=== PATIENT | female | born 1970 | race Hispanic/Latino ===

== ENCOUNTER → 2017-07-21 | Outpatient (CLI) | payer MEDICARE ==
[~2017-07-21] MED LIST: ACET-2900 PO; ADV500 IH; BIOT5000 PO; CETI10TA57 PO; DIAZ5TAB4 PO; GABA-531 PO; HYDR-2534 PO; HYDR-4060 PO; IBUP-2077 PO; INSU100C14 SQ; INSU3INS3 SQ; LEVO88TA7 PO; LOSA50TA37 PO; MONT10TA24 PO; ONDA22I IM; ONDA4TAB4 PO; PANT40TA25 PO; PRAV40TA3 PO; SOLI5 PO; SPIR25TA PO; TRAZ150T79 PO; WARF-57 PO; WARF4TAB72 PO; [UNRECOGNIZED DRUG - OTHER] PO; [UNRECOGNIZED DRUG - OTHER] PO; [UNRECOGNIZED DRUG - OTHER] PO; albuterol PO; proventil IH; victoza; vitamin b12 PO
== END | disposition home or self-care (01) ==
LOC: SHCH 09:38
PROVIDERS: ATTEND Internal Medicine Cardiovascular Disease
DX: Z09 Encounter for follow-up examination after completed treatment for conditions other than malignant neoplasm (principal)
CPT/HCPCS: 93971

== ENCOUNTER 2017-09-26 10:39 | Day surgery (SDC) | payer MEDICARE ==
[~2017-09-26] VITALS: Ht 153.7 cm; Wt 148.1 kg
[~2017-09-26 10:39] MED LIST changes: -ONDA22I IM; +SODIUM CHLORIDE 0.9% 1000ML 1,000 ML IV ONE
[2017-09-26 11:39] VITALS: BP 139/92
[2017-09-26 11:55] LABS: INR 0.95 (0.85-1.15)
[2017-09-26] MEDS ORDERED: PROPOFOL 10 MG/ML 20ML VIAL IV ONE (11:57)
[2017-09-26 12:04] VITALS: BP 115/77
== END 2017-09-26 12:30 | disposition home or self-care (01) ==
LOC: DAH 10:39
PROVIDERS: ATTEND Internal Medicine
DX: K21.0 Gastro-esophageal reflux disease with esophagitis (principal); K31.89 Other diseases of stomach and duodenum; E78.5 Hyperlipidemia, unspecified; I10 Essential (primary) hypertension; E03.9 Hypothyroidism, unspecified; J44.9 Chronic obstructive pulmonary disease, unspecified; M19.90 Unspecified osteoarthritis, unspecified site; F41.9 Anxiety disorder, unspecified; E11.9 Type 2 diabetes mellitus without complications; F32.9 Major depressive disorder, single episode, unspecified; I26.99 Other pulmonary embolism without acute cor pulmonale; Z79.899 Other long term (current) drug therapy; Z86.73 Personal history of transient ischemic attack (TIA), and cerebral infarction without residual deficits; D64.9 Anemia, unspecified; Z98.890 Other specified postprocedural states; Z90.49 Acquired absence of other specified parts of digestive tract; Z88.0 Allergy status to penicillin; Z88.8 Allergy status to other drugs, medicaments and biological substances
CPT/HCPCS: 36415; 43239; 82948 ×2; 85610; 85730; 88305; 88312; A4606 ×2; J2704; J7030

== ENCOUNTER → 2017-12-30 | Outpatient (CLI) | payer MEDICARE ==
[~2017-12-30] MED LIST changes: -BIOT5000 PO; +LOSA50TA25 PO; -LOSA50TA37 PO; -ONDA4TAB4 PO; -SODIUM CHLORIDE 0.9% 1000ML 1,000 ML IV ONE; -proventil IH
== END | disposition home or self-care (01) ==
LOC: SHCH 13:50
PROVIDERS: ATTEND Internal Medicine Cardiovascular Disease
DX: I87.2 Venous insufficiency (chronic) (peripheral) (principal); F41.9 Anxiety disorder, unspecified
CPT/HCPCS: 93970

== ENCOUNTER → 2018-01-09 | Outpatient (CLI) | payer MEDICARE ==
[2018-01-09 12:32] LABS: CREATININE 0.7 mg/dL (0.5-1.5)
== END | disposition home or self-care (01) ==
LOC: LAB 11:42
PROVIDERS: ATTEND Internal Medicine
DX: R07.9 Chest pain, unspecified (principal); I10 Essential (primary) hypertension; E78.5 Hyperlipidemia, unspecified; E11.9 Type 2 diabetes mellitus without complications
CPT/HCPCS: 36415; 82565; 84520

== ENCOUNTER → 2018-01-13 | Outpatient (CLI) | payer MEDICARE ==
[~2018-01-13] MED LIST changes: +IOHEXOL-350 50ML VIAL IV ONE
== END | disposition home or self-care (01) ==
LOC: RAH 08:44
PROVIDERS: ATTEND Internal Medicine
DX: R07.9 Chest pain, unspecified (principal); Z90.49 Acquired absence of other specified parts of digestive tract
CPT/HCPCS: 71260; Q9967

== ENCOUNTER → 2021-03-21 | Outpatient (CLI) | payer OTHER, MEDICARE ==
[~2021-03-21] MED LIST changes: -ACET-2900 PO; +ACET-3194 PO; -HYDR-2534 PO; +HYDR50TA PO; -IOHEXOL-350 50ML VIAL IV ONE; -LOSA50TA25 PO; +LOSA50TA64 PO; +MONT-39 PO; -MONT10TA24 PO; -PANT40TA25 PO; +PANT40TA54 PO
== END | disposition home or self-care (01) ==
LOC: SHCH 14:48
PROVIDERS: ATTEND Internal Medicine Cardiovascular Disease
DX: I65.23 Occlusion and stenosis of bilateral carotid arteries (principal); R42 Dizziness and giddiness; I73.9 Peripheral vascular disease, unspecified; E11.40 Type 2 diabetes mellitus with diabetic neuropathy, unspecified; E78.5 Hyperlipidemia, unspecified; E03.9 Hypothyroidism, unspecified; I11.9 Hypertensive heart disease without heart failure; R60.0 Localized edema; Z99.81 Dependence on supplemental oxygen; Z79.01 Long term (current) use of anticoagulants
CPT/HCPCS: 93880

== ENCOUNTER → 2021-09-05 | Outpatient (CLI) | payer OTHER, MEDICARE ==
[2021-09-05 15:09] LABS: CREATININE 0.6 mg/dL (0.5-1.5)
== END | disposition home or self-care (01) ==
LOC: LAB 13:46
PROVIDERS: ATTEND Otolaryngology Plastic Surgery within the Head & Neck
DX: H90.3 Sensorineural hearing loss, bilateral (principal)
CPT/HCPCS: 36415; 82565; 84520

== ENCOUNTER → 2021-09-12 | Outpatient (CLI) | payer OTHER, MEDICARE ==
[~2021-09-12] MED LIST changes: +GADOTERATE MEGLUMINE 10 MMOL/20 ML VIAL IV ONE
== END | disposition home or self-care (01) ==
LOC: RAH 13:47
PROVIDERS: ATTEND Otolaryngology Plastic Surgery within the Head & Neck
DX: H90.3 Sensorineural hearing loss, bilateral (principal)
CPT/HCPCS: 70553; A9575

== ENCOUNTER 2022-04-03 19:41 | Emergency (ER) | payer OTHER, MEDICARE ==
[~2022-04-03] VITALS: Ht 157.5 cm; Wt 138.3 kg
[~2022-04-03 19:41] MED LIST changes: -GADOTERATE MEGLUMINE 10 MMOL/20 ML VIAL IV ONE
[2022-04-03 20:39] LABS: BASOPHILS % (AUTO) 0.6 % (0.0-5.0); EOSINOPHILS % (AUTO) 1.6 % (0.0-8.0); HEMATOCRIT 34.5 % (36-48); LYMPHOCYTES % (AUTO) 30.5 % (21.0-51.0); MEAN CORPUSCULAR HEMOGLOBIN 23.1 pg (27.0-33.0); MEAN CORPUSCULAR HGB CONC 30.7 g/dL (32.0-36.0); MEAN CORPUSCULAR VOLUME 75.2 fL (79-99); MONOCYTES % (AUTO) 6.9 % (3.0-13.0); NEUTROPHILS % (AUTO) 60.2 % (40.0-77.0); PLATELET COUNT (AUTO) 409 K/uL (130-400); RED BLOOD CELL COUNT(AUTO) 4.59 MIL/uL (4.00-5.50); RED CELL DISTRIBUTION WIDTH 17.5 % (11.0-15.5); WHITE BLOOD COUNT (AUTO) 8.3 K/uL (4.8-10.8)
[2022-04-03 20:52] LABS: CREATININE 0.8 mg/dL (0.5-1.5); POTASSIUM 3.3 mmol/L (3.5-5.1)
[2022-04-03 20:54] LABS: INR 1.99 (0.85-1.15); PROTHROMBIN TIME 20.9 SEC (9.6-11.6)
[2022-04-03 20:55] LABS: PARTIAL THROMBOPLASTIN TIME 32.4 SEC (26.3-35.5)
[2022-04-03 20:57] LABS: ALBUMIN 3.2 g/dL (3.5-5.0)
[2022-04-03] MEDS ORDERED: ONDANSETRON 4MG INJ ONE (21:52)
[2022-04-03] MEDS ORDERED: MORPHINE 2 MG SYG ONE (21:52)
[2022-04-03] MEDS ORDERED: MORPHINE 2 MG SYG IVP ONE (22:00)
[2022-04-03] MEDS ORDERED: ONDANSETRON 4MG INJ IVP ONE (22:00)
[2022-04-04] MEDS ORDERED: IBUP-2076 PO (01:07)
[2022-04-04] MEDS ORDERED: CYCL-309 PO (01:07)
[2022-04-04] MEDS ORDERED: IBUPROFEN 400 MG TABLET ONE (03:00)
[2022-04-04] MEDS ORDERED: IBUPROFEN 200 MG TAB ONE (03:00)
[2022-04-04] MEDS ORDERED: CYCLOBENZAPRINE HCL 10 MG TABLET ONE (03:01)
[2022-04-04 03:17] VITALS: BP 132/74
== END 2022-04-04 03:32 | disposition home or self-care (01) ==
LOC: EDH 19:41
DX: S09.8XXA Other specified injuries of head, initial encounter (principal); M79.661 Pain in right lower leg; M25.551 Pain in right hip; J45.909 Unspecified asthma, uncomplicated; Y99.8 Other external cause status; J44.9 Chronic obstructive pulmonary disease, unspecified; M54.50 Low back pain, unspecified; I10 Essential (primary) hypertension; E11.9 Type 2 diabetes mellitus without complications; Z79.4 Long term (current) use of insulin; Z79.899 Other long term (current) drug therapy; Z88.0 Allergy status to penicillin; Z88.1 Allergy status to other antibiotic agents; Z88.8 Allergy status to other drugs, medicaments and biological substances; W13.3XXA Fall through floor, initial encounter; Y93.89 Activity, other specified; Y92.89 Other specified places as the place of occurrence of the external cause
CPT/HCPCS: 99285; 80053; 85025; 85610; 85730; 36415; 73630; 73562; 72100; 72170; 73590; 70450; 72125; 96374; 96375; J2405

== ENCOUNTER → 2023-07-08 | Outpatient (CLI) | payer OTHER, MEDICARE ==
[~2023-07-08] MED LIST changes: +CYCL-309 PO; +IBUP-2076 PO
[2023-07-08 16:37] LABS: CREATININE 0.7 mg/dL (0.5-1.0)
== END | disposition home or self-care (01) ==
LOC: LAB 14:50
PROVIDERS: ATTEND Internal Medicine Cardiovascular Disease
DX: G47.33 Obstructive sleep apnea (adult) (pediatric) (principal); I10 Essential (primary) hypertension
CPT/HCPCS: 36415; 80048

== ENCOUNTER → 2023-11-19 | Outpatient (CLI) | payer OTHER, MEDICARE ==
[2023-11-19 16:45] LABS: CREATININE 0.8 mg/dL (0.5-1.0); MAGNESIUM 1.8 mg/dL (1.80-2.40); POTASSIUM 3.7 mmol/L (3.5-5.1)
== END | disposition home or self-care (01) ==
LOC: LAB 13:57
PROVIDERS: ATTEND Internal Medicine Cardiovascular Disease
DX: I10 Essential (primary) hypertension (principal)
CPT/HCPCS: 36415; 80048; 83735

== ENCOUNTER → 2023-12-04 | Outpatient (CLI) | payer OTHER, MEDICARE | END | disposition home or self-care (01) | LOC: RAH 13:59 | PROVIDERS: ATTEND Internal Medicine Cardiovascular Disease | DX: E65 Localized adiposity (principal); R60.9 Edema, unspecified | CPT/HCPCS: 93306 ==

== ENCOUNTER → 2024-01-20 | Outpatient (CLI) | payer OTHER, MEDICARE ==
[2024-01-20 16:22] LABS: CREATININE 0.9 mg/dL (0.5-1.0); MAGNESIUM 1.9 mg/dL (1.80-2.40)
== END | disposition home or self-care (01) ==
LOC: LAB 13:45
PROVIDERS: ATTEND Internal Medicine Cardiovascular Disease
DX: I87.2 Venous insufficiency (chronic) (peripheral) (principal); R60.9 Edema, unspecified; R09.02 Hypoxemia
CPT/HCPCS: 36415; 80048; 83735; 83880

== ENCOUNTER → 2024-03-30 | Outpatient (CLI) | payer OTHER, MEDICARE ==
[2024-03-30 16:37] LABS: ALBUMIN 3.4 g/dL (3.5-5.0); BILIRUBIN,TOTAL 0.3 mg/dL (0.2-1.0); CREATININE 0.8 mg/dL (0.5-1.0); POTASSIUM 4.1 mmol/L (3.5-5.1); TOTAL PROTEIN, SERUM 7.9 g/dL (6.0-8.3)
== END | disposition home or self-care (01) ==
LOC: LAB 14:34
PROVIDERS: ATTEND Internal Medicine Cardiovascular Disease
DX: E78.5 Hyperlipidemia, unspecified (principal)
CPT/HCPCS: 36415; 80053; 80061

== ENCOUNTER → 2024-05-28 | Outpatient (CLI) | payer OTHER, MEDICARE ==
[2024-05-28 15:23] LABS: ALBUMIN 3.4 g/dL (3.5-5.0); BILIRUBIN,TOTAL 0.1 mg/dL (0.2-1.0); CREATININE 0.7 mg/dL (0.5-1.0); POTASSIUM 3.9 mmol/L (3.5-5.1); TOTAL PROTEIN, SERUM 7.8 g/dL (6.0-8.3)
== END | disposition home or self-care (01) ==
LOC: LAB 12:55
PROVIDERS: ATTEND Internal Medicine Cardiovascular Disease
DX: I10 Essential (primary) hypertension (principal); R00.0 Tachycardia, unspecified; I87.2 Venous insufficiency (chronic) (peripheral); E78.2 Mixed hyperlipidemia; E11.9 Type 2 diabetes mellitus without complications
CPT/HCPCS: 36415; 80053; 80061

== ENCOUNTER → 2024-07-02 | Outpatient (CLI) | payer OTHER, MEDICARE ==
[2024-07-02 15:46] LABS: CREATININE 0.7 mg/dL (0.5-1.0)
[2024-07-02 16:01] LABS: POTASSIUM 3.9 mmol/L (3.5-5.1)
== END | disposition home or self-care (01) ==
LOC: LAB 14:36
PROVIDERS: ATTEND Internal Medicine Cardiovascular Disease
DX: E11.9 Type 2 diabetes mellitus without complications (principal); I95.2 Hypotension due to drugs; R60.9 Edema, unspecified
CPT/HCPCS: 36415; 80048; 83880